=== PATIENT | male | born 1995 | race Caucasian/White ===

== ENCOUNTER → 2016-06-02 | Outpatient (CLI) | payer OTHER ==
[~2016-06-02] VITALS: Ht 177.8 cm; Wt 108.9 kg
[~2016-06-02] MED LIST: IOHEXOL 350 MG/ML 100ML IJ ONE
[2016-06-02 08:50] VITALS: BP 129/85
[2016-06-02 09:55] VITALS: BP 126/75
== END | disposition home or self-care (01) ==
LOC: Rad HDHVI 08:10
PROVIDERS: ATTEND Internal Medicine Cardiovascular Disease
DX: R07.9 Chest pain, unspecified (principal); R06.02 Shortness of breath; M30.3 Mucocutaneous lymph node syndrome [Kawasaki]
CPT/HCPCS: 70496; 70498; 78452; 93017; 96374; 96375; A9500; G0463; Q9967

== ENCOUNTER → 2016-06-08 | Outpatient (CLI) | payer OTHER | END | disposition home or self-care (01) | LOC: Rad HDHVI 15:27 | PROVIDERS: ATTEND Internal Medicine Cardiovascular Disease | DX: I34.2 Nonrheumatic mitral (valve) stenosis (principal); I35.0 Nonrheumatic aortic (valve) stenosis; I34.0 Nonrheumatic mitral (valve) insufficiency; I07.1 Rheumatic tricuspid insufficiency | CPT/HCPCS: 93306 ==